=== PATIENT | female | born 1960 | race Caucasian/White ===

== ENCOUNTER 2024-08-13 14:22 | Outpatient (RCR) | payer OTHER, SELFPAY | END 2024-08-23 11:41 | disposition home or self-care (01) | LOC: PT 14:22 | PROVIDERS: PCP Family Medicine; Visit Provider Physical Medicine & Rehabilitation | DX: D32.9 Benign neoplasm of meninges, unspecified (principal); Z98.890 Other specified postprocedural states | CPT/HCPCS: 97112; 97162 ==

== ENCOUNTER 2024-08-22 07:52 | Outpatient (RCR) | payer OTHER, SELFPAY | END 2024-09-06 06:55 | disposition home or self-care (01) | LOC: OT 07:52 | PROVIDERS: PCP Family Medicine; Visit Provider Physical Medicine & Rehabilitation | DX: D32.9 Benign neoplasm of meninges, unspecified (principal); Z98.890 Other specified postprocedural states | CPT/HCPCS: 97140; 97166; 97530 ==